=== PATIENT | female | born 1975 | race Caucasian/White ===

== ENCOUNTER 2021-03-19 08:01 | Day surgery (SDC) | payer BC ==
[~2021-03-19] VITALS: Ht 154.9 cm; Wt 83.9 kg
[2021-03-19 08:38] LABS: HCG,QUAL RESULT NEGATIVE (NEGATIVE)
[2021-03-19] MEDS ORDERED: MEPERIDINE 100 MG INJ. 100 MG/ML VIAL ONE (10:36)
[2021-03-19] MEDS ORDERED: SIMETHICONE 40 MG/0.6 ML ML ONE (10:36)
[2021-03-19] MEDS ORDERED: GLYCOPYRROLATE 0.2 MG/ML VIAL ONE (10:37)
[2021-03-19] MEDS ORDERED: MIDAZOLAM HCL 5 MG/5 ML VIAL ONE (10:37)
[2021-03-19 13:19] VITALS: BP_SYST 122
== END 2021-03-19 11:55 | disposition home or self-care (01) ==
LOC: SDS 08:01 → SMU 08:01 → SDS 11:55
PROVIDERS: ATTEND Colon & Rectal Surgery
DX: Z12.11 Encounter for screening for malignant neoplasm of colon (principal); K57.30 Diverticulosis of large intestine without perforation or abscess without bleeding; K21.9 Gastro-esophageal reflux disease without esophagitis; F32.9 Major depressive disorder, single episode, unspecified; Z86.010 Personal history of colon polyps; Z79.899 Other long term (current) drug therapy; Z20.822 Contact with and (suspected) exposure to COVID-19
CPT/HCPCS: 45378; 84703; 99152; 99153; G0378; J2175; J2250; U0003; J3490